=== PATIENT | female | born 1940 | race Caucasian/White ===

== ENCOUNTER → 2023-09-09 | Outpatient (CLI) | payer MEDICARE, BC ==
[~2023-09-09] MED LIST: AMLODIPINE PO; ASPIRIN 32325 MG/TAB PO; BESYLATE PO; CALCIUM CARBON650 M2 PO; FIBER0.52 GM PO; HYZAAR 25 MG-101 TAB; LASIX 20MG TABL20 MG PO; LAXATIVE FOR WOM5 MG PO; LIPITOR 80MG80 MG PO; MAGNESIUM250 M1 PO; MASON NATURAL1200 MG PO; MULTI VITAMINS1 TAB PO; THE MEDICINE S200 M2 PO; VITAMIN FLUSH-F1 CAP PO; VITAMIND3 5000 PO
== END ==
LOC: MHCPAIN 14:22
DX: M47.816 Spondylosis without myelopathy or radiculopathy, lumbar region (principal); M48.062 Spinal stenosis, lumbar region with neurogenic claudication
CPT/HCPCS: G0463

== ENCOUNTER → 2024-01-20 | Outpatient (CLI) | payer MEDICARE, BC | LOC: MHCPAIN 14:38 | DX: M43.16 Spondylolisthesis, lumbar region (principal); M47.816 Spondylosis without myelopathy or radiculopathy, lumbar region; M48.061 Spinal stenosis, lumbar region without neurogenic claudication | CPT/HCPCS: G0463 ==